=== PATIENT | female | born 1985 | race Caucasian/White ===

== ENCOUNTER → 2021-07-24 | Outpatient (CLI) | payer OTHER ==
[~2021-07-24] MED LIST: BACTRIM DS TAB1 EACH PO; KEFLEX CAP 500500 MG PO
[2021-07-24 08:56] LABS: HEMOGLOBIN 12.4 gm/dl (12.3-15.3); RED BLOOD COUNT 4.48 M/UL (4.00-5.10)
[2021-07-24 09:38] LABS: BUN/CREATININE RATIO 15 (0-10)
== END ==
LOC: NM 07:23
PROVIDERS: Podiatrist Foot & Ankle Surgery
DX: E11.621 Type 2 diabetes mellitus with foot ulcer (principal); L97.519 Non-pressure chronic ulcer of other part of right foot with unspecified severity; E11.69 Type 2 diabetes mellitus with other specified complication; M86.671 Other chronic osteomyelitis, right ankle and foot; F17.200 Nicotine dependence, unspecified, uncomplicated; L03.115 Cellulitis of right lower limb
CPT/HCPCS: 36415; 78800; 80048; 83036; 85027; 85652; 86140; 93926; A9569

== ENCOUNTER → 2021-09-18 | Day surgery (SDC) | payer OTHER ==
[~2021-09-18] MED LIST changes: +ACYCLOVIR400 MG PO; +ALL DAY ALLERGY10 M2 PO; +ALLOPURINOL100 MG PO; +AMITRIPTYLINE H25 MG PO; +CARVEDILOL25 MG PO; +CATAPRES 0.1MG0.1 MG PO; +CATAPRES-TTS 31 EACH PO; +GLUCOPHAGE 500500 MG PO; +IBUPROFEN200 MG PO; +LASIX 40 MG TAB40 MG PO; +LINZESS290 MCG PO; +OMEPRAZOLE40 MG PO; +OTEZLA30 MG PO; +QUETIAPINE FUM300 MG PO; +SUBOXONE 12 MG1 EACH SL; +TEMOVATE15 GM TP; +TOPAMAX100 MG PO; +VALSARTAN160 MG PO; +VICTOZA 1818 MG/3 ML SC; +WELLBUTRIN SR150 M1 PO
[2021-09-18 09:08] LABS: HEMOGLOBIN 11.8 gm/dl (12.3-15.3); RED BLOOD COUNT 4.3 M/UL (4.00-5.10); WHITE BLOOD COUNT 8.9 K/UL (4.5-11.0)
[2021-09-18 09:29] LABS: BUN/CREATININE RATIO 17 (0-10)
== END | disposition home or self-care (01) ==
LOC: OR 07:45
PROVIDERS: Podiatrist Foot & Ankle Surgery
DX: M20.41 Other hammer toe(s) (acquired), right foot (principal); E11.621 Type 2 diabetes mellitus with foot ulcer; L97.519 Non-pressure chronic ulcer of other part of right foot with unspecified severity; B35.1 Tinea unguium; M24.574 Contracture, right foot; L84 Corns and callosities; E11.40 Type 2 diabetes mellitus with diabetic neuropathy, unspecified; L40.9 Psoriasis, unspecified; L57.0 Actinic keratosis; I87.8 Other specified disorders of veins; Z88.0 Allergy status to penicillin; Z88.8 Allergy status to other drugs, medicaments and biological substances
CPT/HCPCS: 36415; 73630; 76000; 80048; 82962; 83036; 84703; 85027; J1100; J1170; J1885; J2001; J2250; J2405; J2550; J2704; J2795; J3010; J3370

== ENCOUNTER → 2021-10-24 | Outpatient (CLI) | payer OTHER | LOC: KOH-I 14:58 | DX: M79.671 Pain in right foot (principal) | CPT/HCPCS: 73630 ==

== ENCOUNTER → 2021-12-31 | Outpatient (CLI) | payer OTHER | LOC: KOH-I 16:20 | DX: M79.671 Pain in right foot (principal) | CPT/HCPCS: 73630 ==